=== PATIENT | male | born 1980 | race Caucasian/White ===

== ENCOUNTER 2023-08-16 14:15 | Emergency (ER) | payer OTHER, SELFPAY ==
[2023-08-16] VITALS (10 sets, daily range): BP systolic 119–151; BP diastolic 80–99; PULSE 66–80; RESP 18; TEMP 36.8; O2SAT 98–100; BMI 25.8
--- NOTE | 2023-08-16 14:32 | ED.NURSE ---
Pt refusing IV and blood draw. Pt explained the risks of not testing blood at this time and that refusing to do so is against medical advice. Pt states he understands. Pt states he will think about it. updated.
--- NOTE | 2023-08-16 14:36 | CRLHL7_ITS ---
For Patients: As a result of the Century Cures Act, medical imaging exams and procedure reports are released immediately into your electronic medical record. You may view this report before your referring provider. If you have questions, please contact your health care provider. INDICATION: Left lower chest pain TECHNIQUE: Two view chest. FINDINGS: The lungs are clear. The heart, mediastinum and pulmonary vessels are of normal size. There is no evidence of pleural disease. IMPRESSION: Negative chest. Dictated by Es Cano MD @ 08/16/2023 3:18:55 PM (Electronically Signed)
--- NOTE | 2023-08-16 15:04 | ED_ITS ---
HPI - Chest Pain General Date Seen: 08/16/23 Chief Complaint: Chest Pain Stated Complaint: L side chest pain Time Seen by Provider: 08/16/23 14:30 Source: patient Mode of arrival: ambulatory Limitations: no limitations History of Present Illness HPI narrative: Patient is a 43-year-old male presenting to emergency department for left lower chest pain. Symptoms 1st started on Friday when were initially intermittent but pain has since been more constant. States he has a very mild dull pain. Has not had symptoms like this before. Does not remember any injuries or heavy lifting that might have started the pain. Does state he had COVID a few weeks ago. Does have some mild increase in pain on deep breaths. Denies fevers, chills, shortness of breath, weakness, numbness, lightheadedness, dizziness, abdominal pain. Denies history of blood clots recent for cancer. No other concerns noted at this time. Related Data Home Medications Medication Instructions Recorded Confirmed amlodipine 5 mg tablet 5 mg PO DAILY 08/16/23 08/16/23 Allergies Allergy/AdvReac Type Severity Reaction Status Date / Time No Known Drug Allergies Allergy Verified 08/16/23 14:26 Review of Systems Status of ROS Reports: 10 or more systems reviewed and unremarkable except as noted in History and below PFS PFS Social History Smoking Status: Unknown if ever smoked Exam Const Vital Signs, click to edit/add: Vital Signs - 24 hr 08/16/23 14:26 08/16/23 15:06 08/16/23 15:31 Temperature 98.2 F Pulse Rate 66 77 Pulse Rate [Pulse Oximeter] 80 Respiratory Rate 18 Blood Pressure 133/93 H 127/97 H Blood Pressure [Right Upper Arm] 151/80 H Pulse Oximetry 100 100 99 Oxygen Delivery Method Room Air Room Air 08/16/23 16:00 08/16/23 16:02 08/16/23 16:03 Temperature Pulse Rate 70 70 74 Pulse Rate [Pulse Oximeter] Respiratory Rate Blood Pressure 136/99 H Blood Pressure [Right Upper Arm] Pulse Oximetry 99 99 99 Oxygen Delivery Method Room Air 08/16/23 16:35 08/16/23 16:36 Temperature Pulse Rate 71 69 Pulse Rate [Pulse Oximeter] Respiratory Rate Blood Pressure 139/87 Blood Pressure [Right Upper Arm] Pulse Oximetry 100 100 Oxygen Delivery Method Course Vital Signs Vital signs: Initial Vital Signs Respiratory Effort Normal, Spontaneous, Non-Labored 08/16/23 14:23 Respiratory Depth Normal 08/16/23 14:23 Respiratory Pattern Normal 08/16/23 14:23 Vital Signs Temperature 98.2 F 08/16/23 14:26 Pulse Rate 80 08/16/23 14:26 Respiratory Rate 18 08/16/23 14:26 Blood Pressure 151/80 H 08/16/23 14:26 Pulse Oximetry 100 08/16/23 14:26 Oxygen Delivery Method Room Air 08/16/23 14:26 Temperature 98.2 F 08/16/23 14:26 Pulse Rate 69 08/16/23 16:36 Respiratory Rate 18 08/16/23 14:26 Blood Pressure 139/87 08/16/23 16:35 Pulse Oximetry 100 08/16/23 16:36 Oxygen Delivery Method Room Air 08/16/23 16:03 Medications Administered Medications: Discontinued Medications Generic Name Dose Route Start Last Admin Trade Name Omid PRN Reason Stop Dose Admin Hydroxyzine Pamoate 50 mg 08/16/23 15:28 08/16/23 15:33 Hydroxyzine Pamoate 25 Mg Capsule PO 08/16/23 15:29 50 mg ONCE ONE Administration MDM - Chest Pain MDM Narrative Medical decision making narrative: Patient is a 43-year-old male presenting for chest pain. He is having this left lower chest pain around of rib 9 or 8 region is relatively pinpoint in nature and does seem musculoskeletal but we will further evaluate him for any signs of pulmonary or cardiac etiology. Since he recently had COVID I a.m. more concerned about a PE and will check a D-dimer. Also ordered a CBC, CMP, troponin, EKG, chest x-ray. We had difficulty getting labs from the patient as he really does not like needles. Multiple times read performed the nurse and he would not allow him to do it. Finally given 50 mg of hydroxyzine after that the equipment operator/laborer/supervisor was able to draw his labs. Lab work returned showing no concerning findings other than he does have a potassium of 5.7. Lab does not think the sample was hemolyzed. I did speak to the patient about this and he states he has been seen his primary care provider for his high potassium. States he has a around 5.5 but his last check was 5.3 a few months ago. Due to this already known chronic have potassium that he is following with his primary care provider about I do not think further workup is necessary at this time. EKG shows no signs of peaked T-waves. Troponin was 0.00 and he does not want a repeat drawn. I a.m. agreeable to this at this time as a believe this is most likely musculoskeletal in nature. He will be discharged home. He is agreeable this plan. Lab Data Labs: Lab Results 08/16/23 Range/Units 16:13 WBC 7.10 (4.50-11.00) K/uL RBC 5.42 (4.30-5.90) m/uL Hgb 15.0 (13.5-17.5) gm/dL Hct 47.0 (37.0-53.0) % MCV 87 (80-100) fL MCH 28 (26-34) pg MCHC 32 (32-36) gm/dL RDW Coeff of Dejan 13.0 (11.5-15.5) % Plt Count 303 (140-440) K/uL Neut % (Auto) 52.8 (42.0-72.0) % Lymph % (Auto) 34.6 (20-44) % Mcminn % (Auto) 10.6 (0.0-11.0) % Eos % (Auto) 1.1 (0.0-7.0) % Baso % (Auto) 0.8 (0.0-3.0) % Neut # (Auto) 3.74 (1.7-7.0) K/uL Lymph # (Auto) 2.46 (0.90-2.90) K/uL Mcminn # (Auto) 0.80 (0.00-0.90) K/UL Eos # (Auto) 0.08 (0.00-0.50) K/uL Baso # (Auto) 0.06 (0.00-0.30) K/uL Abs Immat Gran (auto) 0.01 (0.00-0.30) K/uL Imm/Tot Granulo (auto) 0.1 % D-Dimer Quant (PE/DVT) < 0.27 (0.00-0.50) ug/ml Sodium 146 (135-149) mmol/L Potassium 5.7 H (3.6-5.1) mmol/L Chloride 105 (96-114) mmol/L Carbon Dioxide 29 (20-32) mmol/L Anion Gap 12 (7-15) mEq/L BUN 13 (5-24) mg/dL Creatinine 0.9 (0.5-1.5) mg/dL Estimated Creat Clear 108.15 Estimated GFR 108 ml/min Glucose 90 (60-115) mg/dL Calcium 10.2 (8.4-10.6) mg/dL Total Bilirubin 0.4 (0.1-1.5) mg/dL AST 22 (12-35) U/L ALT 23 (4-50) U/L Alkaline Phosphatase 61 (40-150) U/L Total Protein 8.1 (6.0-8.3) g/dL Albumin 5.1 H (3.3-5.0) g/dL POC Troponin I 0.00 L (0.01-0.04) ng/ml Imaging Data Chest x-ray: Radiologist's impression: Negative chest. Dictated by Es Cano MD @ 08/16/2023 3:18:55 PM ECG Data Attestation: I personally reviewed and interpreted this ECG as follows: Prior ECG tracings: not available for review Interpretation: Normal sinus rhythm , normal intervals, normal axis, no ST or T-wave abnormalities. Rate of 79 beats per minute Discharge Plan Discharge Clinical Impression: Atypical chest pain, Acute hyperkalemia Patient Disposition: Home, Self-Care Condition: Stable Instructions: Noncardiac Chest Pain (ED) Additional Instructions: Your chest pain appears to be musculoskeletal in nature. Take Tylenol and ibuprofen for pain. Return to emergency department for new or worsening symptoms. Make sure to follow-up with your primary care provider about your potassium. Prescriptions: No Action amlodipine 5 mg tablet 5 mg PO DAILY Follow Up/Referrals: Nathaniel Parsons MD [Referring] - Stand Alone Forms: Rated People Info Instructions
[2023-08-16] MEDS: hydrOXYzine pamoate 25 MG CAPSULE 50 MG PO (15:33)
--- NOTE | 2023-08-16 15:42 | ED.NURSE ---
[employer] in to draw blood from pt. Pt states lab should do it, they do this all day! Call to lab to draw blood.
--- NOTE | 2023-08-16 15:47 | ED.NURSE ---
Lab in to draw blood. Pt refusing. Pt tells lab to come back in 15 minutes.
[2023-08-16 16:26] LABS: Basophils Absolute Auto 0.06 K/uL (0.00-0.30); Basophils Percent Auto 0.8 % (0.0-3.0); Eosinophils Absolute Auto 0.08 K/uL (0.00-0.50); Eosinophils Percent Auto 1.1 % (0.0-7.0); Immature Granulocytes Abs Auto 0.01 K/uL (0.00-0.30); Immature Granulocytes Pct Auto 0.1 %; Lymphocytes Absolute Auto 2.46 K/uL (0.90-2.90); Lymphocytes Percent Auto 34.6 % (20-44); Mean Corpuscular HGB Conc 32 gm/dL (32-36); Mean Corpuscular Hemoglobin 28 pg (26-34); Mean Corpuscular Volume 87 fL (80-100); Monocytes Percent Auto 10.6 % (0.0-11.0); Neutrophils Absolute Auto 3.74 K/uL (1.7-7.0); Neutrophils Percent Auto 52.8 % (42.0-72.0); Platelet Count* 303 K/uL (140-440); Red Blood Count 5.42 m/uL (4.30-5.90)
[2023-08-16 16:28] LABS: Slide Review Reflex No
[2023-08-16 16:36] LABS: Albumin* 5.1 g/dL (3.3-5.0); Chloride* 105 mmol/L (96-114)
[2023-08-16 16:37] LABS: Potassium* 5.7 mmol/L (3.6-5.1); Sodium* 146 mmol/L (135-149)
[2023-08-16 16:39] LABS: Anion Gap 12 mEq/L (7-15); Bilirubin Total* 0.4 mg/dL (0.1-1.5); Carbon Dioxide* 29 mmol/L (20-32); Creatinine* 0.9 mg/dL (0.5-1.5); Est. Creatinine Clearance* 108.15; Estimated Glomerular Filt Rate 108 ml/min
[2023-08-16 16:40] LABS: Alanine Aminotransferase* 23 U/L (4-50); Alkaline Phosphatase* 61 U/L (40-150); Aspartate Amino Transferase* 22 U/L (12-35); Blood Urea Nitrogen* 13 mg/dL (5-24); Calcium* 10.2 mg/dL (8.4-10.6); Glucose* 90 mg/dL (60-115); Total Protein* 8.1 g/dL (6.0-8.3)
[2023-08-16 16:48] LABS: D Dimer Quantitative* < 0.27 ug/ml (0.00-0.50)
== END 2023-08-16 17:15 | disposition home or self-care (01) ==
PROVIDERS: Emergency Provider Student in an Organized Health Care Education/Training Program; PCP Family Medicine
DX: R07.89 Other chest pain (principal); E87.5 Hyperkalemia
CPT/HCPCS: 36415; 71046; 80053; 84484; 85025; 85379; 93005; 99283; 99284; 99285; A9270